=== PATIENT | female | born 1950 | race African-American/Black ===

== ENCOUNTER → 2017-10-12 | Emergency (ER) | payer OTHER ==
[~2017-10-12] VITALS: Ht 172.7 cm; Wt 78.0 kg
[2017-10-13 11:15] VITALS: BP 128/78
== END | disposition home or self-care (01) ==
LOC: EME 23:56
DX: S20.219A Contusion of unspecified front wall of thorax, initial encounter (principal); I10 Essential (primary) hypertension; J45.909 Unspecified asthma, uncomplicated; Y04.2XXA Assault by strike against or bumped into by another person, initial encounter; Z88.6 Allergy status to analgesic agent
CPT/HCPCS: 90832; G0480